=== PATIENT | female | born 1985 | race Caucasian/White ===

== ENCOUNTER 2017-09-29 11:03 | Inpatient (IN) | payer OTHER, MEDICAID ==
[~2017-09-29] VITALS: Ht 162.6 cm; Wt 119.1 kg
[~2017-09-29 11:03] MED LIST: Z.0.NO CURRENT MEDS
[2017-09-29 11:10] VITALS: O2SAT 97
[2017-09-29] MEDS ORDERED: ONDANSETRON HCL 4 MG/2 ML VIAL ONE (11:13)
[2017-09-29] MEDS ORDERED: ETOMIDATE 20 MG/10 ML VIAL ONE (11:27)
[2017-09-29 11:30] VITALS: O2SAT 100
[2017-09-29 11:40] LABS: I-STAT POTASSIUM 3.7 MMOL/L (3.5-4.9); I-STAT SODIUM 140 MMOL/L (138-146)
[2017-09-29 11:47] LABS: AUTOMATED NEUTROPHIL # 14.9 TH/MM3 (1.8-7.7); BASOPHIL # 0.1 TH/MM3 (0-0.2); BASOPHIL % 0.7 % (0.0-2.0); EOSINOPHIL # 0.1 TH/MM3 (0-0.4); EOSINOPHIL % 0.4 % (0.0-4.0); HEMATOCRIT 36.7 % (35.0-46.0); HEMO FLAGS DIFF FINAL; LYMPH % 23.9 % (9.0-44.0); MEAN CELL VOLUME 72.1 FL (80.0-100.0); MEAN CORPUSCULAR HEMOGLOBIN 23.3 PG (27.0-34.0); MEAN CORPUSCULAR HGB CONC 32.3 % (32.0-36.0); MONO % 3.5 % (0.0-8.0); NEUT % 71.5 % (16.0-70.0); PLATELET COUNT 440 TH/MM3 (150-450); RED BLOOD COUNT 5.08 MIL/MM3 (4.00-5.30); RED CELL DISTRIBUTION WIDTH 17.2 % (11.6-17.2); WHITE BLOOD COUNT 20.9 TH/MM3 (4.0-11.0)
[2017-09-29 11:50] LABS: APTT (PATIENT) 22.2 SEC (24.3-30.1); INTERNATIONAL NORMALIZED RATIO 0.9 RATIO; PROTHROMBIN TIME - PATIENT 10.1 SEC (9.8-11.6)
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
[2017-09-29] MEDS ORDERED: PROPOFOL 200 MG/20 ML AMP IV ONE (12:00)
[2017-09-29] MEDS ORDERED: MIDAZOLAM HCL 2 MG/2 ML VIAL IV ONE (12:00)
[2017-09-29] MEDS ORDERED: SUCCINYLCHOLINE CHLORIDE 100 MG/5 ML SYRINGE IV PUSH ONE (12:00)
[2017-09-29] MEDS ORDERED: NORMOSOL R INJ 1,000 ML IV ONE (12:00)
[2017-09-29] MEDS ORDERED: DEXAMETHASONE SOD PHOS 4 MG/ML VIAL IV ONE (12:00)
[2017-09-29] MEDS ORDERED: GLYCOPYRROLATE 1 MG/5 ML SYRINGE IV PUSH ONE (12:00)
[2017-09-29] MEDS ORDERED: LIDOCAINE HCL 1% PF 5 ML AMPULE OTHER ONE (12:00)
[2017-09-29] MEDS ORDERED: ONDANSETRON HCL 4 MG/2 ML VIAL IV PUSH ONE ×2 (12:00→14:00)
[2017-09-29] MEDS ORDERED: NEOSTIGMINE 3 MG/3 ML SYR IV ONE (12:00)
[2017-09-29] MEDS ORDERED: ROCURONIUM INJ 50 MG/5 ML SYRINGE IV PUSH ONE (12:00)
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
[2017-09-29] MEDS ORDERED: IOHEXOL 350 MG/ML 10 ML VIAL (for RAD DIAG) IVCONTRAST ONE (12:12)
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
[2017-09-29 12:30] LABS: ALCOHOL LESS THAN 3 MG/DL (0-5)
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
[2017-09-29] MEDS ORDERED: HYDROmorphone HCL PF 1 MG/ML VIAL IV PUSH ONE ×2 (13:30)
[2017-09-29] MEDS ORDERED: HYDROmorphone HCL PF 2 MG/ML VIAL IV ONE (13:36)
[2017-09-29] MEDS ORDERED: DIPHTH/TETANUS/ACEL PERTUSSIS (BOOSTER) 0.5 ML VIAL/PFS IM ONE (13:53)
[2017-09-29] MEDS ORDERED: ceFAZolin 2 GM PREMIX 50 ML IV STA (13:53)
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
[2017-09-29] MEDS ORDERED: SODIUM CHLOR 0.9% 1000 ML INJ 1,000 ML IV ONE (14:00)
[2017-09-29] MEDS ORDERED: ETOMIDATE 20 MG/10 ML VIAL IV PUSH ONE (14:00)
[2017-09-29] MEDS ORDERED: Post-op Orders (for Pharmacy) XX ONE (14:15)
[2017-09-29] MEDS ORDERED: NALOXONE HCL 0.4 MG/ML AMP IV PUSH PRN (14:15)
[2017-09-29] MEDS ORDERED: PROTAMINE SULFATE 50 MG/5 ML VIAL ONE (14:41)
[2017-09-29] MEDS ORDERED: HEPARIN SODIUM - IV 10,000 UNITS/10 ML VIAL ONE (14:41)
[2017-09-29] MEDS ORDERED: HEPARIN SODIUM - SQ 10,000 UNITS/ML VIAL ONE (14:41)
[2017-09-29] MEDS ORDERED: BUPIVACAINE HCL PF 0.25% 30 ML VIAL ONE (14:41)
[2017-09-29] MEDS: SODIUM CHLORIDE 0.9% FLUSH 10 ML FLUSH IV FLUSH PRN (14:43)
[2017-09-29] MEDS: MORPHINE SULFATE 4 MG/ML INJ IV PUSH PRN ×3 (14:43→21:32)
[2017-09-29 14:58] VITALS: BP 196/89; TEMP 98.7
[2017-09-29] MEDS ORDERED: HYDROmorphone HCL PF 2 MG/ML VIAL ONE (15:13)
[2017-09-29] MEDS ORDERED: ACETAMINOPHEN 1000 MG/100 ML 100 ML IV ONE (15:13)
[2017-09-29] MEDS ORDERED: KETAMINE HCL 500 MG/5 ML VIAL ONE (15:13)
[2017-09-29] MEDS ORDERED: GENTAMICIN SULFATE 80 MG/2 ML VIAL ONE (15:59)
[2017-09-29] MEDS ORDERED: NEOMYCIN/POLYMYXIN 1 ML G.U. IRRIGANT ONE (16:02)
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
[2017-09-29] MEDS: ceFAZolin 2 GM PREMIX 50 ML IV SCH ×2 (16:10→21:32)
[2017-09-29] MEDS: GENTAMICIN 80 MG PREMIX 100 ML IV SCH (16:10)
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
[2017-09-29] MEDS ORDERED: DO NOT ADM ANY ANTICOAGULANT DRUGS PRN (17:45)
--- NOTE | 2017-09-29 18:13 | HHI.PR ---
Immediate Post Op Note Procedure Date: Sep 29, 2017 Pre Op Diagnosis: Knight III R talus fracture/dislocation, open R medial/lateral malleolus fractures, open Post Op Diagnosis: Same Surgeon: Kanika Kelley DPM [employer](s): Staff Procedure: Irrigation and debridement Right ankle/rearfoot with external fixation Findings: Consistent with diagnosis. Medial ankle wound down to bone noted transversely across tarsal tunnel area from TN joint area posteriorly to, but not including achilles tendon insertion, medially. Talar body fragment dislocated medially with posterior tibial tendon frayed in wound. Under traction, talar body fragment reduced and checked with c-arm. Posterior tibial artery noted posterior to fragment and found to be patent. Irrigation with 9L NS with gentamicin, followed by application of transcalcaneal pin and two transtibial pins with delta frame construct maintaining reduction under c-arm guidance. Culture taken, followed by loose approximation with 2-0 nylon suture, followed by application of xeroform to pin sites and skin wound area, then 4x4, abd, cast padding and short posterior splint RLE. NWB RLE To OR again Friday for repeat I&D, and possible ORIF talus/attempt ORIF ankle if cultures negative on Friday Additional Information: Ancef 2g, Gentamicin 80mg IV ordered q8h No tourniquet utilized No gross debris noted in wound. Wound approximately 13cm x 5cm x 3cm depth R medial ankle Complications: None Specimen(s) removed: Culture R ankle Estimated blood loss: 30mL Anesthesia: General, Local (30mL 0.25% marcaine plain ankle block) Drains: None IVF Tourniquet time (min at mmHg) n/a Patient to: PACU Patient Condition: Good Date/Time of Procedure: SEE SURGICAL CARE RECORD Kanika Kelley DPM Sep 29, 2017 18:13
--- NOTE | 2017-09-29 18:20 | RADRPT ---
EXAM DATE/TIME: 09/29/2017 16:48 [facility] COMPARISON: ANKLE RIGHT LIMITED (AP&LAT), September 29, 2017, 11:46. INDICATIONS : Ex fix right ankle. Done in operating room. MEDICAL HISTORY : None. SURGICAL HISTORY : None. ENCOUNTER: Subsequent ACUITY: 1 day PAIN SCORE: Non-responsive. LOCATION: Right ankle. FINDINGS: 5 images from the OR have been obtained. There's been successful reduction of the talar fracture and distraction. The talar fragments are aligned. The ankle is aligned. There is fracturing of the dista l fibula and medial malleolus. There appears to be an external fixer over the calcaneus. CONCLUSION: Successful reduction. Young Pandey MD on September 29, 2017 at 18:17 Board Certified Radiologist. This report was verified electronically.
[2017-09-29] MEDS: VANCOMYCIN INJ 1,000 MG in SODIUM CHLOR 0.9% 250 ML INJ 250 ML IV SCH (18:30)
[2017-09-29] MEDS: SODIUM CHLOR 0.9% 1000 ML INJ 1,000 ML IV SCH (18:30)
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
[2017-09-29 20:00] VITALS: BP 141/77; PULSE 81; RESP 17; TEMP 98.3; O2SAT 94
--- NOTE | 2017-09-29 21:29 | RADRPT ---
EXAM DATE/TIME: 09/29/2017 19:57 [facility] COMPARISON: CT ANKLE RIGHT W/O CONTRAST, September 29, 2017, 13:54. INDICATIONS : Right ankle pain, evaluate post external fixation. RADIATION DOSE: 5.75 CTDIvol (mGy) MEDICAL HISTORY : Cardiovascular disease. Deep venous thrombosis. SURGICAL HISTORY : External fixation right ankle. ENCOUNTER: Initial ACUITY: 1 day PAIN SCALE: 10/10 LOCATION: Right ankle. TECHNIQUE: Volumetric scanning of the ankle was performed. Using automated exposure control and adjustment of t he mA and/or kV according to patient size, radiation dose was kept as low as reasonably achievable to obtain optimal diagnostic quality images. DICOM format image data is available electronically for review and comparison. FINDINGS: BONES: There is a comminuted fracture at the talar neck. The main aspect of the talar body is superiorly dis placed by approximately 5 mm. The fracture extends into the anterior aspect of the subtalar joint. The posterior aspect of the subtalar joint is normally aligned. The calcaneus is intact. No other f racture is seen in the foot. There is fracturing of the base of the medial malleolus and at the later al distal fibula/lateral malleolar region. The distal fibular fracture is very comminuted with super ior displacement of the distal lateral malleolar fracture fragments. There is an external fixation de vice seen through the calcaneus. JOINTS: The talar dome is aligned with the distal tibia. There does appear to be widening of the medial aspec t of the ankle joint measuring approximately 7 mm. The talar neck fracture extends into the anterior subtalar joint. SOFT TISSUES: There is some scattered air within the soft tissues. CONCLUSION: 1. Comminuted fracture of the talar neck with some mild superior displacement of the distal fragment in the order of 5 mm. 2. Severely comminuted distal fibular fracture with proximal displacement of the fragments. 3. Fracturing of the medial malleolus with some widening of the medial ankle joint. The distal media l malleolar fragment appears posteriorly displaced. Young Pandey MD on September 29, 2017 at 21:03 Board Certified Radiologist. This report was verified electronically.
[2017-09-29] MEDS: FAMOTIDINE 20 MG TAB PO SCH (21:32)
[2017-09-29] MEDS: DOCUSATE SODIUM 50 MG/SENNA 8.6 MG TAB PO SCH (21:32)
[2017-09-29] MEDS: MAGNESIUM HYDROXIDE SUSP 30 ML CUP PO SCH (21:32)
[2017-09-29] MEDS: SODIUM CHLORIDE 0.9% FLUSH 10 ML FLUSH IV FLUSH SCH (21:33)
[2017-09-30] VITALS (7 sets, daily range): BP systolic 101–134; BP diastolic 51–79; PULSE 66–102; RESP 16–19; TEMP 98–98.5; O2SAT 94–97
[2017-09-30] MEDS: MORPHINE SULFATE 4 MG/ML INJ IV PUSH PRN ×7 (00:38→19:40)
[2017-09-30] MEDS: GENTAMICIN 80 MG PREMIX 100 ML IV SCH ×3 (00:38→16:53)
[2017-09-30] MEDS: SODIUM CHLOR 0.9% 1000 ML INJ 1,000 ML IV SCH ×2 (03:11→09:47)
[2017-09-30] MEDS: VANCOMYCIN INJ 1,000 MG in SODIUM CHLOR 0.9% 250 ML INJ 250 ML IV SCH (03:12)
[2017-09-30] MEDS ORDERED: ACETAMINOPHEN/HYDROcodone 325 MG/7.5 MG TAB PO PRN (07:30)
[2017-09-30] MEDS ORDERED: ACETAMINOPHEN/HYDROcodone 325 MG/5 MG TAB PO PRN (07:30)
[2017-09-30 07:37] LABS: AUTOMATED NEUTROPHIL # 10.3 TH/MM3 (1.8-7.7); BASOPHIL % 0.1 % (0.0-2.0); HEMATOCRIT 30.5 % (35.0-46.0); HEMO FLAGS DIFF FINAL; LYMPH % 8.7 % (9.0-44.0); MEAN CELL VOLUME 71.3 FL (80.0-100.0); MEAN CORPUSCULAR HEMOGLOBIN 23.4 PG (27.0-34.0); MEAN CORPUSCULAR HGB CONC 32.8 % (32.0-36.0); MONO % 3.5 % (0.0-8.0); NEUT % 87.7 % (16.0-70.0); PLATELET COUNT 285 TH/MM3 (150-450); RED BLOOD COUNT 4.28 MIL/MM3 (4.00-5.30); RED CELL DISTRIBUTION WIDTH 16.8 % (11.6-17.2); WHITE BLOOD COUNT 11.8 TH/MM3 (4.0-11.0)
[2017-09-30 07:53] LABS: ALT (GPT) 19 U/L (10-53); ANION GAP 9 MEQ/L (5-15); AST (GOT) 31 U/L (15-37); BICARBONATE 22.2 MEQ/L (21.0-32.0); BLOOD UREA NITROGEN 4 MG/DL (7-18); CHLORIDE 107 MEQ/L (98-107); GLOMERULAR FILTRATION RATE 87 ML/MIN (>89); SODIUM (NA) 138 MEQ/L (136-145)
[2017-09-30 07:56] LABS: ALKALINE PHOSPHATASE 80 U/L (45-117); TOTAL BILIRUBIN ADULT 0.3 MG/DL (0.2-1.0)
[2017-09-30] MEDS: FAMOTIDINE 20 MG TAB PO SCH ×2 (08:31→19:39)
[2017-09-30] MEDS: SODIUM CHLORIDE 0.9% FLUSH 10 ML FLUSH IV FLUSH SCH ×2 (08:31→19:39)
[2017-09-30] MEDS: DOCUSATE SODIUM 50 MG/SENNA 8.6 MG TAB PO SCH ×2 (08:31→19:39)
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
[2017-09-30] MEDS: ceFAZolin 2 GM PREMIX 50 ML IV SCH ×2 (13:54→22:49)
--- NOTE | 2017-09-30 14:26 | EKG ---
Date Performed: 09/29/2017 Time Performed: 14:41:21 PTAGE: 32 years EKG: Sinus rhythm NORMAL ECG PREVIOUS TRACING : 05/24/2013 03.06 Compared to prior tracing no significant change DOCTOR: Fly Aburto Interpretating Date/Time 09/30/2017 14:19:54
[2017-09-30] MEDS ORDERED: WALKER WHEELS/F1 MIS (14:27)
[2017-09-30] MEDS: ACETAMINOPHEN 1000 MG/100 ML 100 ML IV SCH ×2 (14:37→19:40)
[2017-09-30] MEDS: KETOROLAC TROMETHAMINE 30 MG/ML (IVP) VIAL IV PUSH SCH ×2 (14:37→22:49)
[2017-09-30] MEDS: GABAPENTIN 300 MG CAP PO SCH (17:06)
[2017-09-30] MEDS: MAGNESIUM HYDROXIDE SUSP 30 ML CUP PO SCH (19:39)
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
--- NOTE | 2017-09-30 21:12 | PD.POD ---
Subjective Podiatric Problems Knight III R talus fracture/dislocation, open R medial/lateral malleolus fractures, open s/p Irrigation and debridement Right ankle/rearfoot with external fixation Dr Kelley Past Med/Surg/Social History Social History Smoking Status: Former Smoker Objective Vital Signs Vital Signs Date Time Temp Pulse Resp B/P (MAP) Pulse Ox O2 Delivery O2 Flow Rate FiO2 09/30/17 20:25 97 21 09/30/17 19:15 98.2 86 16 129/58 (81) 97 09/30/17 15:45 98.4 102 16 101/54 (70) 97 09/30/17 11:47 98.5 80 19 117/54 (75) 95 09/30/17 08:25 Room Air 09/30/17 07:34 98.0 66 19 105/51 (69) 95 09/30/17 06:04 18 09/30/17 05:06 Room Air 09/30/17 04:05 98.3 91 16 130/59 (82) 94 09/30/17 00:05 98.5 88 18 134/79 (97) 95 Coded Allergies: No Known Allergies (Verified , 05/23/13) Medications and IVs Current Medications Medications (Trade) Dose Ordered Sig/Bettie Route Start Time Stop Time Status Last Admin Sodium Chloride 1,000 ml @ 100 mls/hr Q10H IV 09/29/17 14:00 09/30/17 03:11 (NS Flush) 2 ml UNSCH PRN IV FLUSH 09/29/17 14:00 09/29/17 14:43 (NS Flush) 2 ml BID IV FLUSH 09/29/17 21:00 09/30/17 08:31 (Zofran Inj) 4 mg Q6H PRN IV PUSH 09/29/17 15:00 (Pepcid) 20 mg BID PO 09/29/17 21:00 09/30/17 19:39 (Narcan Inj) 0.4 mg UNSCH PRN IV PUSH 09/29/17 14:15 (Faby-Colace) 1 tab BID PO 09/29/17 21:00 09/30/17 19:39 (Milk Of Magnesia Liq) 30 ml HS PO 09/29/17 21:00 09/30/17 19:39 Gentamicin Sulfate/Sodium Chloride 100 ml @ 200 mls/hr Q8H IV 09/29/17 16:00 09/30/17 16:53 Cefazolin Sodium/ Dextrose 50 ml @ 100 mls/hr Q8H IV 09/29/17 22:00 09/30/17 13:54 (Morphine Inj) 4 mg Q4H PRN IV PUSH 09/30/17 14:15 09/30/17 19:40 (Roxicodone) 5 mg Q4H PRN PO 09/30/17 14:15 (Roxicodone) 10 mg Q4H PRN PO 09/30/17 14:15 09/30/17 17:08 (Toradol Inj) 15 mg Q6H IV PUSH 09/30/17 15:00 09/30/17 14:37 Acetaminophen 100 ml @ 400 mls/hr Q6H IV 09/30/17 15:00 10/01/17 14:59 09/30/17 19:40 (Neurontin) 300 mg TID PO 09/30/17 18:00 09/30/17 17:06 Other Results Microbiology Date/Time Source Procedure Growth Status 09/29/17 17:16 Wound Ankle Fungal Smear - Final NO FUNGAL ELEMENTS SEEN. Resulted 09/29/17 17:16 Wound Ankle Fungal Culture Pending Resulted Physical Exam Remarks NVI RLE. Sensation intact to digits, brisk capillary refill time. Able to flex/ extend digits. Bandage clean, dry, intact. Assessment & Plan A/P Knight III R talus fracture/dislocation, open R medial/lateral malleolus fractures, open s/p Irrigation and debridement Right ankle/rearfoot with external fixation 09/29 Dr Kelley To OR tomorrow PM for repeat I&D with cultures. Plan to take back for ORIF talus/ankle Friday pm if tomorrow's culture is also negative NPO after breakfast Consent ordered Kanika Kelley DPM Sep 30, 2017 21:12
[2017-09-30] MEDS ORDERED: POVIDONE IODINE 5% (ANTISEPSIS KIT) 4 APPLICATIONS EACH NARE PRN (22:15)
[2017-09-30] MEDS ORDERED: METOPROLOL TARTRATE 25 MG TAB PO PRN (22:15)
[2017-09-30] MEDS ORDERED: SODIUM CHLORID 0.9% 500 ML IV PRN (22:15)
[2017-09-30] MEDS ORDERED: LACTATED RINGER'S 1000 ML IV PRN (22:15)
[2017-09-30] MEDS ORDERED: CHLORHEXIDINE GLUCONATE 2 % 1 PACK (2 CLOTHS) TOPICAL PRN (22:15)
[2017-10-01 00:05] VITALS: BP 121/60; PULSE 92; RESP 16; TEMP 98; O2SAT 96
[2017-10-01] MEDS: GENTAMICIN 80 MG PREMIX 100 ML IV SCH ×3 (00:27→17:15)
[2017-10-01] MEDS: ACETAMINOPHEN 1000 MG/100 ML 100 ML IV SCH ×2 (03:18→09:02)
[2017-10-01] MEDS: KETOROLAC TROMETHAMINE 30 MG/ML (IVP) VIAL IV PUSH SCH ×4 (03:19→21:21)
[2017-10-01 04:05] VITALS: BP 144/76; PULSE 84; RESP 16; TEMP 98.8; O2SAT 97
[2017-10-01] MEDS: ceFAZolin 2 GM PREMIX 50 ML IV SCH ×3 (05:36→21:28)
[2017-10-01] MEDS: SODIUM CHLOR 0.9% 1000 ML INJ 1,000 ML IV SCH ×2 (06:00→16:00)
--- NOTE | 2017-10-01 06:21 | RADRPT ---
EXAM DATE/TIME: 10/01/2017 05:45 [facility] COMPARISON: CHEST SINGLE AP, September 29, 2017, 11:24. INDICATIONS : Shortness of breath. MEDICAL HISTORY : None. SURGICAL HISTORY : None. ENCOUNTER: Subsequent ACUITY: 3 days PAIN SCORE: Non-responsive. LOCATION: Bilateral chest FINDINGS: A single view of the chest demonstrates the lungs to be symmetrically aerated without evidence of mas s, infiltrate or effusion. The cardiomediastinal contours are unremarkable. Osseous structures are intact. CONCLUSION: Normal examination. Ralph Nelson MD on October 01, 2017 at 6:20 Board Certified Radiologist. This report was verified electronically.
[2017-10-01 07:54] VITALS: BP 120/67; PULSE 63; RESP 18; TEMP 97.8; O2SAT 97
[2017-10-01] MEDS: SODIUM CHLORIDE 0.9% FLUSH 10 ML FLUSH IV FLUSH SCH ×2 (09:00→21:21)
[2017-10-01] MEDS: DOCUSATE SODIUM 50 MG/SENNA 8.6 MG TAB PO SCH ×2 (09:03→21:20)
[2017-10-01] MEDS: FAMOTIDINE 20 MG TAB PO SCH ×2 (09:03→21:20)
[2017-10-01] MEDS: GABAPENTIN 300 MG CAP PO SCH ×3 (09:03→21:20)
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
[2017-10-01 12:00] VITALS: BP 130/62; PULSE 78; RESP 18; TEMP 97.3; O2SAT 97
[2017-10-01] MEDS ORDERED: LIDOCAINE HCL 1% PF 5 ML SYRINGE OTHER ONE (12:00)
[2017-10-01] MEDS ORDERED: ONDANSETRON HCL 4 MG/2 ML VIAL IV PUSH ONE (12:00)
[2017-10-01] MEDS ORDERED: PROPOFOL 200 MG/20 ML AMP IV ONE (12:00)
[2017-10-01] MEDS: ONDANSETRON HCL 4 MG/2 ML VIAL IV PUSH PRN ×2 (12:34→23:09)
[2017-10-01 16:00] VITALS: BP 134/66; PULSE 82; RESP 18; TEMP 98.5; O2SAT 99
[2017-10-01] MEDS ORDERED: GENTAMICIN SULFATE 80 MG/2 ML VIAL ONE (16:39)
[2017-10-01] MEDS ORDERED: *morphine SULFATE 8 MG/ML PERIprocedure ONLY ONE (17:53)
--- NOTE | 2017-10-01 18:11 | HHI.PR ---
Immediate Post Op Note Procedure Date: Oct 01, 2017 Pre Op Diagnosis: Knight III R talus fracture/dislocation, open R medial/lateral malleolus fractures, open Post Op Diagnosis: same Surgeon: Kanika Kelley DPM Composition [employer] Applier(s): Staff Procedure: I&D R ankle/rearfoot Findings: Consistent with diagnosis. Medial ankle wound down to bone noted transversely across tarsal tunnel area from TN joint area posteriorly to, but not including achilles tendon insertion, medially. Laceration continues posteriorly across, but again not transecting sheath over achilles tendon. Talar body fragment remains relocated and external fixator intact. irrigation with 9L NS. Culture taken of bone from talus fracture site, followed by loose approximation with 2-0 nylon suture, followed by application of xeroform to pin sites and skin wound area, then 4x4, abd, cast padding and short posterior splint RLE. NWB RLE To OR again Friday for possible ORIF talus/attempt ORIF ankle if cultures negative on Friday Continue Ancef 2g, Gentamicin 80mg IV ordered q8h No tourniquet utilized No gross debris noted in wound. Wound approximately 13cm x 5cm x 3cm depth R medial ankle Additional Information: n/a Complications: none Specimen(s) removed: culture R talus Estimated blood loss: minimal Anesthesia: General Drains: None IVF Tourniquet time (min at mmHg) n/a Patient to: PACU Patient Condition: Good Date/Time of Procedure: SEE SURGICAL CARE RECORD Kanika Kelley DPM Oct 01, 2017 18:11
[2017-10-01] MEDS ORDERED: DO NOT ADM ANY ANTICOAGULANT DRUGS PRN (18:15)
[2017-10-01 20:00] VITALS: BP 106/44; PULSE 90; RESP 20; TEMP 98.1; O2SAT 96
[2017-10-01] MEDS: MAGNESIUM HYDROXIDE SUSP 30 ML CUP PO SCH (21:20)
[2017-10-02] VITALS: BP 119/64; PULSE 102; RESP 20; TEMP 98.2
[2017-10-02] MEDS: GENTAMICIN 80 MG PREMIX 100 ML IV SCH ×3 (00:05→18:27)
[2017-10-02] MEDS: KETOROLAC TROMETHAMINE 30 MG/ML (IVP) VIAL IV PUSH SCH ×4 (02:13→21:56)
[2017-10-02 04:00] VITALS: BP 106/54; PULSE 87; RESP 22; TEMP 98.3; O2SAT 98
[2017-10-02] MEDS: ceFAZolin 2 GM PREMIX 50 ML IV SCH ×3 (05:06→21:55)
[2017-10-02 08:00] VITALS: BP 125/46; PULSE 91; RESP 18; TEMP 98.5; O2SAT 97
[2017-10-02] MEDS: GABAPENTIN 300 MG CAP PO SCH ×3 (08:29→18:27)
[2017-10-02] MEDS: DOCUSATE SODIUM 50 MG/SENNA 8.6 MG TAB PO SCH ×2 (08:29→21:55)
[2017-10-02] MEDS: FAMOTIDINE 20 MG TAB PO SCH ×2 (08:30→21:55)
[2017-10-02] MEDS: SODIUM CHLORIDE 0.9% FLUSH 10 ML FLUSH IV FLUSH SCH ×2 (08:30→21:56)
[2017-10-02] MEDS ORDERED: LACTULOSE SYRUP 20 GM/30 ML CUP PO ONE (09:00)
[2017-10-02] MEDS: ENOXAPARIN SODIUM 40 MG/0.4 ML SYRINGE SQ SCH (10:04)
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
[2017-10-02] MEDS ORDERED: WHEEMIS3 (11:42)
[2017-10-02] MEDS ORDERED: BEDSIDE COMMODE1 MI1 (11:42)
[2017-10-02 12:00] VITALS: BP 132/78; PULSE 91; RESP 18; TEMP 98.5; O2SAT 97
[2017-10-02 16:00] VITALS: BP 117/58; PULSE 80; RESP 18; TEMP 97.9; O2SAT 99
[2017-10-02 20:00] VITALS: BP 132/60; PULSE 96; RESP 18; TEMP 99.1; O2SAT 98
[2017-10-02] MEDS: MAGNESIUM HYDROXIDE SUSP 30 ML CUP PO SCH (21:55)
--- NOTE | 2017-10-02 22:42 | PD.POD ---
Subjective Podiatric Problems Knight III R talus fracture/dislocation, open R medial/lateral malleolus fractures, open s/p Irrigation and debridement Right ankle/rearfoot with external fixation Dr Kelley s/p Irrigation and debridement Right ankle/rearfoot 10/01/17 Dr Kelley L 5th digit fracture Past Med/Surg/Social History Social History Smoking Status: Former Smoker Objective Vital Signs Vital Signs Date Time Temp Pulse Resp B/P (MAP) Pulse Ox O2 Delivery O2 Flow Rate FiO2 10/02/17 20:00 99.1 96 18 132/60 (84) 98 10/02/17 16:00 97.9 80 18 117/58 (77) 99 10/02/17 12:00 98.5 91 18 132/78 (96) 97 10/02/17 08:25 Room Air 10/02/17 08:00 98.5 91 18 125/46 (72) 97 10/02/17 04:00 98.3 87 22 106/54 (71) 98 10/02/17 00:00 98.2 102 20 119/64 (82) Coded Allergies: No Known Allergies (Verified , 05/23/13) Physical Exam Remarks Unchanged. External fixator intact and dressing clean, dry, intact RLE. Surgical shoe available for L foot Assessment & Plan A/P Knight III R talus fracture/dislocation, open R medial/lateral malleolus fractures, open s/p Irrigation and debridement Right ankle/rearfoot with external fixation 09/29 Dr Kelley s/p Irrigation and debridement Right ankle/rearfoot 10/01/17 Dr Kelley To OR tomorrow PM for repeat I&D with ORIF R talus, ORIF R ankle, possible adjustment vs removal of external fixator R ankle. NPO after breakfast tomorrow Discussed with patient long-term complications of this injury to include probability of AVN talus upwards of 90% or more and that being ambulatory in a brace with minimal pain is the best result that could be achieved, but that chronic pain and disability could also be likely with likelihood of more surgery in the future as a result L 5th toe fracture continue ambulating in surgical shoe L foot Kanika Kelley DPM Oct 02, 2017 22:42
[2017-10-03] VITALS: BP 121/57; PULSE 90; RESP 16; TEMP 99.7; O2SAT 98
[2017-10-03] MEDS: GENTAMICIN 80 MG PREMIX 100 ML IV SCH ×3 (00:26→16:34)
[2017-10-03] MEDS: KETOROLAC TROMETHAMINE 30 MG/ML (IVP) VIAL IV PUSH SCH ×4 (03:00→22:34)
[2017-10-03 04:00] VITALS: BP 119/65; PULSE 83; RESP 17; TEMP 98.8; O2SAT 99
[2017-10-03] MEDS: ceFAZolin 2 GM PREMIX 50 ML IV SCH ×3 (06:37→22:00)
[2017-10-03] MEDS: DOCUSATE SODIUM 50 MG/SENNA 8.6 MG TAB PO SCH ×2 (07:52→21:00)
[2017-10-03] MEDS: GABAPENTIN 300 MG CAP PO SCH ×3 (07:52→17:46)
[2017-10-03] MEDS: FAMOTIDINE 20 MG TAB PO SCH ×2 (07:53→21:00)
[2017-10-03 08:00] VITALS: BP 115/60; PULSE 90; RESP 18; TEMP 98.7; O2SAT 99
[2017-10-03] MEDS: SODIUM CHLORIDE 0.9% FLUSH 10 ML FLUSH IV FLUSH SCH ×2 (09:00→21:00)
[2017-10-03] MEDS: ENOXAPARIN SODIUM 40 MG/0.4 ML SYRINGE SQ SCH (10:00)
--- NOTE | 2017-10-03 10:22 | RADRPT ---
EXAM DATE/TIME: 10/03/2017 09:43 [facility] COMPARISON: CT ANKLE RIGHT W/O CONTRAST, September 29, 2017, 19:57. INDICATIONS : Right ankle fractures. RADIATION DOSE: 28.49 CTDIvol (mGy) MEDICAL HISTORY : Deep venous thrombosis. SURGICAL HISTORY : Multiple right ankle surgeries. ENCOUNTER: Subsequent ACUITY: 4 - 6 days PAIN SCALE: 3/10 LOCATION: Right ankle. TECHNIQUE: Volumetric scanning of the ankle was performed. Using automated exposure control and adjustment of t he mA and/or kV according to patient size, radiation dose was kept as low as reasonably achievable to obtain optimal diagnostic quality images. DICOM format image data is available electronically for review and comparison. FINDINGS: The examination demonstrates a severely comminuted, moderately displaced fracture of the distal fibul a with extension into the lateral malleolus. There is a 100 percent displaced, mildly rotated fractur e of the medial malleolus as well. There is widening of the ankle mortise. The examination also demon strates several small bone fragments which are situated within the tibiotalar joint anteriorly. The talar dome is intact. There is a comminuted, mildly displaced fracture through the neck of the ta bobbi. There are multiple small bone fragments evident. The talonavicular joint appears intact. Direct comparison is made to the patient's previous study of 09/29/17. The overall alignment of the a nkle mortise and the fracture fragments is unchanged. Note is made of a punctate collection of gas within the patient's severely comminuted fibular fractur e. The overall amount of gas within the joint has significantly decreased compared to the prior of . CONCLUSION: 1. There is a severely comminuted, essentially shattered fracture involving the distal fibula extendi ng through the lateral malleolus. There are numerous bone fragments and moderate displacement. 2. There is a percent displaced, rotated fracture of the medial malleolus. 3. There is widening of the ankle mortise with several punctate bone fragment seen within the anterio r aspect of the joint. 4. Fracture with comminution through the neck of the talus. 5. Comparison is made to the exam of 09/29/17. The overall alignment of the fracture fragments is sim ilar to the examination of 09/29/17. Jesus Alberto Carpenter MD on October 03, 2017 at 10:12 Board Certified Radiologist. This report was verified electronically.
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
[2017-10-03 12:00] VITALS: BP 142/56; PULSE 91; RESP 18; TEMP 97.4; O2SAT 100
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
[2017-10-03 16:00] VITALS: BP 145/61; PULSE 86; RESP 18; TEMP 98.7; O2SAT 98
[2017-10-03] MEDS ORDERED: BUPIVACAINE HCL PF 0.25% 30 ML VIAL ONE (16:57)
[2017-10-03] MEDS ORDERED: GENTAMICIN SULFATE 80 MG/2 ML VIAL ONE (16:57)
[2017-10-03] MEDS ORDERED: NEOMYCIN/POLYMYXIN 1 ML G.U. IRRIGANT ONE (17:00)
[2017-10-03] MEDS ORDERED: ACETAMINOPHEN 1000 MG/100 ML 100 ML IV ONE (17:07)
[2017-10-03] MEDS: MAGNESIUM HYDROXIDE SUSP 30 ML CUP PO SCH (21:00)
[2017-10-03] MEDS ORDERED: MORPHINE SULFATE 8 MG/ML INJ ONE (22:29)
[2017-10-03] MEDS ORDERED: MEPERIDINE HCL 25 MG/ML VIAL ONE (22:30)
--- NOTE | 2017-10-03 22:40 | HHI.PR ---
Immediate Post Op Note Procedure Date: Oct 03, 2017 Pre Op Diagnosis: Knight III R talus fracture/dislocation, open R medial/lateral malleolus fractures, open Post Op Diagnosis: Same Surgeon: Kanika Kelley DPM Operater(s): Viktor Aragon DPM Procedure: I&D R ankle/rearfoot ORIF R talus ORIF R ankle Adjust external fixator R ankle Application of external fixator R foot Findings: Consistent with diagnosis. Medial ankle wound down to bone noted transversely across tarsal tunnel area from TN joint area posteriorly to, but not including achilles tendon insertion, medially. Laceration continues posteriorly across, but again not transecting sheath over achilles tendon. Talar body fragment remains relocated and external fixator intact. irrigation with 3L NS. Culture taken of wound medial ankle. Talus fracture reduced and 2 cannulated screws placed across talus fracture site. Medial malleolus fixated with hook place, followed by reduction of lateral malleolar fracture with distal fibular locking plate. Distal fibula highly comminuted. Reduction confirmed with c-arm. External fixator reapplied, and additional external fixation placed to proximal 1st and 5th metatarsal bases to hold foot in dorsiflexed position. Deep closure with 3-0 vicryl, followed by skin closure with 2-0 nylon, followed by application of xeroform to pin sites and skin wound area, then 4x4, abd, cast padding and short posterior splint RLE. NWB RLE Ok to d/c and follow up in clinic in 1 week when pain controlled on oral medications. Continue Ancef 2g, Gentamicin 80mg IV ordered q8h No tourniquet utilized Additional Information: n/a Complications: none Specimen(s) removed: culture R medial ankle Estimated blood loss: minimal Anesthesia: General, Local (10mL 0.5% marcaine plain) Drains: None IVF Tourniquet time (min at mmHg) n/a Patient to: PACU Patient Condition: Good Implant/Devices: SEE IMPLANT LOG (if applicable) Date/Time of Procedure: SEE SURGICAL CARE RECORD Kanika Kelley DPM Oct 03, 2017 22:40
--- NOTE | 2017-10-03 22:41 | RADRPT ---
EXAM DATE/TIME: 10/03/2017 19:13 [facility] COMPARISON: CT ANKLE RIGHT W/O CONTRAST, September 29, 2017, 19:57. ANKLE RIGHT COMPLETE ([id number]), September 29, 2017, 18:29. INDICATIONS : ORIF right ankle. MEDICAL HISTORY : None. SURGICAL HISTORY : None. ENCOUNTER: Initial ACUITY: 1 day PAIN SCORE: Non-responsive. LOCATION: Right ankle FINDINGS: 4 images have been obtained. There is a surgical plate along the lateral aspect of the fibula secured by multiple screws. There is a shorter plate at the distal medial aspect of the tibia. There is a sc rew through the medial malleolus. 2 screws are seen through the talus. The ankle is normally aligned. CONCLUSION: Successful ORIF. Young Pandey MD on October 03, 2017 at 22:38 Board Certified Radiologist. This report was verified electronically.
[2017-10-03] MEDS ORDERED: DO NOT ADM ANY ANTICOAGULANT DRUGS PRN (23:00)
[2017-10-03] MEDS ORDERED: *morphine SULFATE 8 MG/ML PERIprocedure ONLY ONE ×2 (23:03→23:16)
--- NOTE | 2017-10-03 23:05 | RADRPT ---
EXAM DATE/TIME: 10/03/2017 22:37 [facility] COMPARISON: ANKLE RIGHT COMPLETE ([id number]), October 03, 2017, 19:13. INDICATIONS : Post Op ORIF right ankle. MEDICAL HISTORY : None. SURGICAL HISTORY : None. ORIF right ankle ENCOUNTER: Initial ACUITY: 1 day PAIN SCORE: Non-responsive. LOCATION: Right ankle FINDINGS: Three-view examination postoperative internal fixation demonstrates lateral fibular plate and medial tibial plate with associated medial malleolar screw. Also 2 screws in the talus. Alignment of the b lorena structures is anatomic. External fixation device in place. There is a triangle are shaped bony fragment adjacent to the distal lateral malleolus. Moderate soft tissue swelling about the lateral a spect of the ankle. CONCLUSION: Postoperative hardware internal fixation with anatomic alignment. Deepak Jamison MD on October 03, 2017 at 22:56 Board Certified Radiologist. This report was verified electronically.
[2017-10-03 23:46] VITALS: BP 134/65; PULSE 93; RESP 18; TEMP 98.6; O2SAT 97
[2017-10-04] MEDS: GENTAMICIN 80 MG PREMIX 100 ML IV SCH ×4 (00:52→22:46)
[2017-10-04] MEDS: KETOROLAC TROMETHAMINE 30 MG/ML (IVP) VIAL IV PUSH SCH ×4 (03:00→20:12)
[2017-10-04 04:00] VITALS: BP 129/59; PULSE 69; RESP 16; TEMP 97.7; O2SAT 98
[2017-10-04] MEDS: SODIUM CHLORIDE 0.9% FLUSH 10 ML FLUSH IV FLUSH PRN ×2 (04:03→05:12)
[2017-10-04] MEDS: MORPHINE SULFATE 4 MG/ML INJ IV PUSH PRN ×3 (04:03→13:37)
[2017-10-04] MEDS: CYCLOBENZAPRINE HCL 10 MG TAB PO SCH ×3 (05:12→22:46)
[2017-10-04] MEDS: ceFAZolin 2 GM PREMIX 50 ML IV SCH ×3 (05:12→22:47)
[2017-10-04 08:02] VITALS: BP 115/68; PULSE 84; RESP 18; TEMP 97.7; O2SAT 94
[2017-10-04] MEDS: FAMOTIDINE 20 MG TAB PO SCH ×2 (08:55→20:11)
[2017-10-04] MEDS: GABAPENTIN 300 MG CAP PO SCH ×3 (08:55→18:30)
[2017-10-04] MEDS: SODIUM CHLORIDE 0.9% FLUSH 10 ML FLUSH IV FLUSH SCH ×2 (08:56→20:12)
[2017-10-04] MEDS: DOCUSATE SODIUM 50 MG/SENNA 8.6 MG TAB PO SCH ×2 (08:56→20:11)
[2017-10-04] MEDS ORDERED: PERI PO (11:23)
[2017-10-04] MEDS ORDERED: LEVA500T33 PO (11:23)
[2017-10-04] MEDS ORDERED: PERC5TAB12 PO (11:23)
[2017-10-04] MEDS ORDERED: CYCL10TA PO (11:23)
[2017-10-04] MEDS: ENOXAPARIN SODIUM 40 MG/0.4 ML SYRINGE SQ SCH (11:26)
[2017-10-04 12:00] VITALS: BP 141/70; PULSE 83; RESP 18; TEMP 97.6; O2SAT 97
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
[2017-10-04 16:00] VITALS: BP_SYST 121; BP_SYST 135; BP_DIAS 75; PULSE 70; PULSE 94; RESP 18; TEMP 97.3; TEMP 98.2; O2SAT 97; O2SAT 99
[2017-10-04 20:12] VITALS: BP 145/66; PULSE 94; RESP 18; TEMP 98.3; O2SAT 99
[2017-10-04] MEDS: MAGNESIUM HYDROXIDE SUSP 30 ML CUP PO SCH (20:12)
[2017-10-04 23:36] VITALS: BP 116/58; PULSE 97; RESP 18; TEMP 98.8; O2SAT 99
[2017-10-05] MEDS: KETOROLAC TROMETHAMINE 30 MG/ML (IVP) VIAL IV PUSH SCH ×2 (00:27→08:25)
[2017-10-05] MEDS: ceFAZolin 2 GM PREMIX 50 ML IV SCH (04:56)
[2017-10-05] MEDS: CYCLOBENZAPRINE HCL 10 MG TAB PO SCH ×2 (04:56→12:26)
[2017-10-05] MEDS: MORPHINE SULFATE 4 MG/ML INJ IV PUSH PRN (06:15)
[2017-10-05 08:04] VITALS: BP 136/59; PULSE 78; RESP 18; TEMP 97.5; O2SAT 97
[2017-10-05] MEDS: DOCUSATE SODIUM 50 MG/SENNA 8.6 MG TAB PO SCH (08:25)
[2017-10-05] MEDS: GABAPENTIN 300 MG CAP PO SCH ×2 (08:25→12:25)
[2017-10-05] MEDS: FAMOTIDINE 20 MG TAB PO SCH (08:25)
[2017-10-05] MEDS: SODIUM CHLORIDE 0.9% FLUSH 10 ML FLUSH IV FLUSH SCH (08:25)
[2017-10-05] MEDS: GENTAMICIN 80 MG PREMIX 100 ML IV SCH (08:26)
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
[2017-10-05 12:01] VITALS: BP 106/52; PULSE 87; RESP 18; TEMP 97.5; O2SAT 95
[2017-10-05] MEDS: ENOXAPARIN SODIUM 40 MG/0.4 ML SYRINGE SQ SCH (12:25)
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
== END 2017-10-05 15:45 | disposition home health service (06) | DRG 493 ==
LOC: HOR 11:03 → NEDA 12:50 → N06B 19:03
PROVIDERS: ADMIT Surgery; ATTEND Surgery
PROC: 0QSJXZZ Reposition Right Fibula, External Approach (ICD-10-PCS; 2017-09-29)
PROC: 0QSGXZZ Reposition Right Tibia, External Approach (ICD-10-PCS; 2017-09-29)
PROC: 04JY0ZZ Inspection of Lower Artery, Open Approach (ICD-10-PCS; 2017-09-29)
PROC: 0QDL0ZZ Extraction of Right Tarsal, Open Approach (ICD-10-PCS; principal; 2017-09-29 15:54)
PROC: 0QSL05Z Reposition Right Tarsal with External Fixation Device, Open Approach (ICD-10-PCS; 2017-09-29 15:54)
PROC: 0QDL0ZZ Extraction of Right Tarsal, Open Approach (ICD-10-PCS; 2017-10-01)
PROC: 0QSJ04Z Reposition Right Fibula with Internal Fixation Device, Open Approach (ICD-10-PCS; 2017-10-03)
PROC: 0QSG04Z Reposition Right Tibia with Internal Fixation Device, Open Approach (ICD-10-PCS; 2017-10-03)
PROC: 0QSL04Z Reposition Right Tarsal with Internal Fixation Device, Open Approach (ICD-10-PCS; 2017-10-03)
PROC: 0QHL35Z Insertion of External Fixation Device into Right Tarsal, Percutaneous Approach (ICD-10-PCS; 2017-10-03)
DX: S82.841B Displaced bimalleolar fracture of right lower leg, initial encounter for open fracture type I or II (principal); Z68.42 Body mass index [BMI] 45.0-49.9, adult; I10 Essential (primary) hypertension; S92.101B Unspecified fracture of right talus, initial encounter for open fracture; S92.912A Unspecified fracture of left toe(s), initial encounter for closed fracture; E66.9 Obesity, unspecified; R10.11 Right upper quadrant pain; Z86.718 Personal history of other venous thrombosis and embolism; Z87.891 Personal history of nicotine dependence; V43.52XA Car driver injured in collision with other type car in traffic accident, initial encounter; Y92.410 Unspecified street and highway as the place of occurrence of the external cause
CPT/HCPCS: 27840; 71010; 71260; 72125; 72170; 73600; 73610; 73630; 73700; 74177; 76000; 76937; 80053; 80307; 82435; 82565; 82947; 84132; 84295; 84520; 85025; 85610; 85730; 86850; 86900; 86901; 87015; 87070; 87102; 87116; 87176; 87205; 87206; 90715; 93005; 96374; 96375; C1713; J0131; J0330; J0690; J1100; J1170; J1580; J1644; J1650; J1885; J2175; J2250; J2270; J2405; J2710; J2720; J3010; J3370; J7030; J7050; L2114; L3260; L8699; Q9967

== ENCOUNTER 2017-12-07 20:37 | Inpatient (IN) | payer MEDICAID ==
[~2017-12-07] VITALS: Ht 162.6 cm; Wt 119.2 kg
[~2017-12-07 20:37] MED LIST changes: +BEDSIDE COMMODE1 MI1; +CYCL10TA PO; +LEVA500T33 PO; +PERC5TAB12 PO; +PERI PO; +WALKER WHEELS/F1 MIS; +WHEEMIS3; -Z.0.NO CURRENT MEDS
[2017-12-07 20:39] VITALS: BP 159/103; PULSE 130; RESP 20; TEMP 98.9; O2SAT 96
[2017-12-07] MEDS ORDERED: GABA300C5 PO (21:08)
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
[2017-12-07] MEDS ORDERED: oxyCODONE/ACETAMINOPHEN 5 MG/325 MG TAB PO ONE (21:30)
--- NOTE | 2017-12-07 21:55 | RADRPT ---
EXAM DATE/TIME: 12/07/2017 21:27 [facility] COMPARISON: ANKLE RIGHT COMPLETE ([id number]), October 03, 2017, 22:37. INDICATIONS : Painful post surgical right ankle more then usual with no new known trauma. MEDICAL HISTORY : None. SURGICAL HISTORY : ORIF Right ankle ENCOUNTER: Subsequent ACUITY: 2 months PAIN SCORE: 10/10 LOCATION: Right ankle FINDINGS: Two view examination was performed of the right ankle. Plain screws along the distal fibula and dista l tibia. Screw through the medial malleolus noted. This fixate old fractures. External fixation devic e is seen. There is also screws traversing the talus. Soft tissue swelling. Bony fragment again seen distal to the lateral malleolus. CONCLUSION: Previous internal fixation and external fixation devices. David Ramires MD on December 07, 2017 at 21:52 Board Certified Radiologist. This report was verified electronically.
--- NOTE | 2017-12-07 22:22 | RADRPT ---
EXAM DATE/TIME: 12/07/2017 22:02 [facility] COMPARISON: ANKLE RIGHT LIMITED (AP&LAT), December 07, 2017, 21:27. INDICATIONS : Increased pain in right ankle 2 months post op / ex-fix. RADIATION DOSE: 7.29 CTDIvol (mGy) MEDICAL HISTORY : Deep venous thrombosis. Cardiovascular disease rheumatoid arthritis SURGICAL HISTORY : right ankle surgery ENCOUNTER: Subsequent ACUITY: 2 months PAIN SCALE: 6/10 LOCATION: Right ankle TECHNIQUE: Volumetric scanning of the ankle was performed. Using automated exposure control and adjustment of t he mA and/or kV according to patient size, radiation dose was kept as low as reasonably achievable to obtain optimal diagnostic quality images. DICOM format image data is available electronically for review and comparison. FINDINGS: Views of the right ankle demonstrates external fixation devices traversing the first and fifth metata rsals as well as the calcaneus. There are screws traversing the talus. Several bony fragments are see n adjacent to the talus. Screws are seen traversing the medial malleolus. Plate and screws are seen a long the distal tibia medially. Plate and screws are seen along the fibula as well. Ankle mortise int act. Diffuse soft tissue swelling. No abscess. CONCLUSION: Previous internal fixation with external fixation devices as described above. David Ramires MD on December 07, 2017 at 22:15 Board Certified Radiologist. This report was verified electronically.
[2017-12-07] MEDS ORDERED: BISACODYL 10 MG SUPP RECTAL PRN (22:30)
[2017-12-07] MEDS ORDERED: SENNOSIDES 8.6 MG TAB PO PRN (22:30)
[2017-12-07] MEDS ORDERED: NALOXONE HCL 0.4 MG/ML AMP IV PUSH PRN (22:30)
[2017-12-07] MEDS ORDERED: MAGNESIUM HYDROXIDE SUSP 30 ML CUP PO PRN (22:30)
[2017-12-07] MEDS ORDERED: LACTULOSE SYRUP 20 GM/30 ML CUP PO PRN (22:30)
[2017-12-07] MEDS ORDERED: ONDANSETRON HCL 4 MG/2 ML VIAL IVP PRN (22:30)
[2017-12-07] MEDS ORDERED: SODIUM CHLORIDE 0.9% FLUSH 10 ML FLUSH IV FLUSH PRN (22:30)
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
[2017-12-08 01:09] VITALS: BP 138/84; PULSE 87; RESP 18; TEMP 98; O2SAT 98
[2017-12-08] MEDS: SODIUM CHLOR 0.9% 1000 ML INJ 1,000 ML IV SCH ×3 (01:32→20:00)
[2017-12-08 02:03] LABS: AUTOMATED NEUTROPHIL # 6.1 TH/MM3 (1.8-7.7); BASOPHIL # 0.1 TH/MM3 (0-0.2); EOSINOPHIL % 0.4 % (0.0-4.0); HEMATOCRIT 34.7 % (35.0-46.0); HEMOGLOBIN 11.3 GM/DL (11.6-15.3); LYMPH % 34.3 % (9.0-44.0); LYMPHOCYTE # 3.6 TH/MM3 (1.0-4.8); MEAN CELL VOLUME 71.5 FL (80.0-100.0); MEAN CORPUSCULAR HEMOGLOBIN 23.3 PG (27.0-34.0); MEAN CORPUSCULAR HGB CONC 32.6 % (32.0-36.0); MEAN PLATELET VOLUME 7.9 FL (7.0-11.0); MONO % 5.9 % (0.0-8.0); MONOCYTE # 0.6 TH/MM3 (0-0.9); NEUT % 58.4 % (16.0-70.0); PLATELET COUNT 310 TH/MM3 (150-450); RED BLOOD COUNT 4.85 MIL/MM3 (4.00-5.30); RED CELL DISTRIBUTION WIDTH 16.8 % (11.6-17.2); WHITE BLOOD COUNT 10.4 TH/MM3 (4.0-11.0)
[2017-12-08 02:05] LABS: PROTHROMBIN TIME - PATIENT 10.6 SEC (9.8-11.6)
[2017-12-08 02:24] LABS: ALBUMIN 3.5 GM/DL (3.4-5.0); ALT (GPT) 26 U/L (10-53); AST (GOT) 20 U/L (15-37); BLOOD UREA NITROGEN 7 MG/DL (7-18); CALCIUM 9.1 MG/DL (8.5-10.1); CHLORIDE 103 MEQ/L (98-107); CREATININE 0.79 MG/DL (0.50-1.00); GLOMERULAR FILTRATION RATE 83 ML/MIN (>89); GLUCOSE,RANDOM 86 MG/DL (74-106); SODIUM (NA) 139 MEQ/L (136-145)
[2017-12-08 02:26] LABS: ALKALINE PHOSPHATASE 140 U/L (45-117); TOTAL BILIRUBIN ADULT 0.3 MG/DL (0.2-1.0); TOTAL PROTEIN 7.9 GM/DL (6.4-8.2)
[2017-12-08 04:19] VITALS: BP 140/61; PULSE 97; RESP 18; TEMP 98.7; O2SAT 99
[2017-12-08] MEDS ORDERED: INSULIN HUMAN REGULAR 1,000 UNITS/10 ML VIAL SQ PRN (07:15)
[2017-12-08] MEDS ORDERED: LACTATED RINGER'S 1000 ML IV PRN (07:15)
[2017-12-08] MEDS ORDERED: METOPROLOL TARTRATE 25 MG TAB PO PRN (07:15)
[2017-12-08] MEDS ORDERED: POVIDONE IODINE 5% (ANTISEPSIS KIT) 4 APPLICATIONS EACH NARE PRN (07:15)
[2017-12-08] MEDS ORDERED: SODIUM CHLORID 0.9% 500 ML IV PRN (07:15)
[2017-12-08] MEDS ORDERED: CHLORHEXIDINE GLUCONATE 2 % 1 PACK (2 CLOTHS) TOPICAL PRN (07:15)
[2017-12-08] MEDS: SODIUM CHLORIDE 0.9% FLUSH 10 ML FLUSH IV FLUSH SCH ×2 (09:00→22:50)
[2017-12-08] MEDS: DOCUSATE SODIUM 50 MG/SENNA 8.6 MG TAB PO SCH ×2 (09:00→22:49)
[2017-12-08 09:12] VITALS: BP 117/56; PULSE 108; RESP 12; TEMP 95.7; O2SAT 97
--- NOTE | 2017-12-08 11:11 | HHI.PR ---
Subjective Remarks Follow-up orthopedic injury. Complaining of right lower extremity pain. No numbness. Awaiting surgery. Discussed with and nursing staff. Objective Vitals Vital Signs Date Time Temp Pulse Resp B/P (MAP) Pulse Ox O2 Delivery O2 Flow Rate FiO2 12/08/17 09:12 95.7 108 12 117/56 (76) 97 12/08/17 04:19 98.7 97 18 140/61 (87) 99 12/08/17 01:09 98.0 87 18 138/84 (102) 98 12/07/17 23:20 12/07/17 20:39 98.9 130 20 159/103 (121) 96 Result Diagram: 12/08/17 0142 12/08/17 0142 Imaging Last Impressions Ankle X-Ray 12/07/172101 Signed Impressions: Service Date/Time: Thursday, December 07, 2017 21:27 - CONCLUSION: Previous internal fixation and external fixation devices. David Ramires MD Lower Extremity CT 12/07/17 0000 Signed Impressions: Service Date/Time: Thursday, December 07, 2017 22:02 - CONCLUSION: Previous internal fixation with external fixation devices as described above. David Ramires MD Objective Remarks GENERAL: female well-developed obese in no distress SKIN: No rashes, ecchymoses or lesions. Cool and dry. CARDIOVASCULAR: Regular rate and rhythm without murmurs, gallops, or rubs. RESPIRATORY: Clear to auscultation. Breath sounds equal bilaterally. No wheezes , rales, or rhonchi. GASTROINTESTINAL: Abdomen soft, non-tender, nondistended. No guarding. MUSCULOSKELETAL: Right lower extremity with external fixation hardware in the ankle and lower leg. Neurovascularly intact. Orthopedic shoe left foot NEUROLOGICAL: Awake and alert. Cranial nerves II through XII intact. Motor and sensory grossly within normal limits. Normal speech. A/P Problem List: (1) Ankle fracture ICD Code: S82.899A - Other fracture of unspecified lower leg, initial encounter for closed fracture (2) Fracture of phalanx of left foot, closed ICD Code: S92.912A - Unspecified fracture of left toe(s), initial encounter for closed fracture Assessment and Plan 1. Intractable pain Pain control with Percocet. Add IV morphine for breakthrough pain. Restart gabapentin 2. Status post right ankle fracture Patient with external fixation hardware in place, without signs of infection Dr. Kelley consulted for removal of hardware Nothing by mouth 3. Hypokalemia. Replace with 40 mEq potassium by mouth 1. Repeat BMP and mag in the morning. FEN NPO NS at 100 cc/hr Holding pharmacologic anticoagulation in anticipation operative intervention today Discharge Planning Per podiatry Jaycob Fischer MD Dec 08, 2017 11:11
[2017-12-08] MEDS ORDERED: ONDANSETRON HCL 4 MG/2 ML VIAL IV ONE (12:00)
[2017-12-08] MEDS ORDERED: DEXAMETHASONE SOD PHOS 4 MG/ML VIAL IV ONE (12:00)
[2017-12-08] MEDS ORDERED: LIDOCAINE HCL 1% PF 5 ML SYRINGE OTHER ONE (12:00)
[2017-12-08] MEDS ORDERED: PROPOFOL 200 MG/20 ML AMP IV ONE (12:00)
[2017-12-08] MEDS ORDERED: POTASSIUM CHLORIDE 20 MEQ CONTROLLED RELEASE TAB PO ONE (12:00)
[2017-12-08] MEDS: GABAPENTIN 300 MG CAP PO SCH ×2 (12:02→18:00)
[2017-12-08 12:12] VITALS: BP 131/63; PULSE 90; RESP 18; TEMP 96.1; O2SAT 95
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
[2017-12-08] MEDS ORDERED: GENTAMICIN SULFATE 80 MG/2 ML VIAL ONE (18:10)
[2017-12-08] MEDS ORDERED: ceFAZolin INJ 1,000 MG VIAL ONE (18:18)
[2017-12-08] MEDS ORDERED: DO NOT ADM ANY ANTICOAGULANT DRUGS PRN (18:36)
--- NOTE | 2017-12-08 18:38 | HHI.PR ---
Immediate Post Op Note Procedure Date: Dec 08, 2017 Pre Op Diagnosis: Painful hardware right leg/ankle/foot Post Op Diagnosis: Same Surgeon: Kanika Kelley DPM Air Battle Manager(s): Staff Procedure: Removal of hardware (external fixator) right leg/ankle/foot Findings: Consistent with diagnosis. External fixation device intact with two transtibial pins, one transcalcaneal pin, and one pin each to 1st metatarsal and 5th metatarsal bases, respectively. External fixator and pins removed, followed by curettage of bone and wound, irrigation with normal saline plus gentamicin, followed by revision of pin sites and closure with 2-0 nylon suture to all sites x 6. Healthy bleeding bone and tissue noted prior to closure with no purulence or sign of infection noted. Dressing with xeroform, 4x4, cast padding and short posterior splint applied Right lower extremity. Nonweightbearing Right lower extremity until CT results in Keep bandage clean, dry, intact. Ordered fracture boot to transition into when splint able to be removed. Ok with Discharge home when pain controlled on oral medications. Additional Information: 2g Ancef IV, no tourniquet utilized. Complications: None Specimen(s) removed: none Estimated blood loss: Minimal Anesthesia: General Drains: None IVF Tourniquet time (min at mmHg) n/a Patient to: PACU Patient Condition: Good Date/Time of Procedure: SEE SURGICAL CARE RECORD Kanika Kelley DPM Dec 08, 2017 18:38
[2017-12-08] MEDS ORDERED: MIDAZOLAM HCL 2 MG/2 ML VIAL ONE (18:41)
[2017-12-08] MEDS ORDERED: MORPHINE SULFATE 4 MG/ML INJ ONE (18:41)
[2017-12-08] MEDS ORDERED: *morphine SULFATE 10 MG/ML PERIprocedure ONLY ONE ×3 (19:04→19:26)
--- NOTE | 2017-12-08 19:49 | RADRPT ---
EXAM DATE/TIME: 12/08/2017 18:45 [facility] COMPARISON: No previous studies available for comparison. INDICATIONS : Post ORIF right ankle MEDICAL HISTORY : None. SURGICAL HISTORY : ORIF right ankle ENCOUNTER: Initial ACUITY: 1 day PAIN SCORE: 10/10 LOCATION: Right Tibia FINDINGS: Postoperative fixation lateral and medial malleolus and lag screw fixation of the talus. Patchy osteo penia. Overlying cast. Normal alignment. CONCLUSION: 1. Postoperative change as above. Carlos Enrique Arevalo MD on December 08, 2017 at 19:46 Board Certified Radiologist. This report was verified electronically.
--- NOTE | 2017-12-08 19:51 | RADRPT ---
EXAM DATE/TIME: 12/08/2017 18:49 [facility] COMPARISON: No previous studies available for comparison. INDICATIONS : Post of right ankle surgery. MEDICAL HISTORY : None. SURGICAL HISTORY : ORIF Right ankle ENCOUNTER: Initial ACUITY: 1 day PAIN SCORE: 10/10 LOCATION: Right ankle FINDINGS: Postop fixation medial and lateral malleolus and talus. Patchy osteopenia. Normal alignment. CONCLUSION: 1. Postop changes as above. Carlos Enrique Arevalo MD on December 08, 2017 at 19:47 Board Certified Radiologist. This report was verified electronically.
--- NOTE | 2017-12-08 19:52 | RADRPT ---
EXAM DATE/TIME: 12/08/2017 18:50 [facility] COMPARISON: No previous studies available for comparison. INDICATIONS : Post ORIF right ankle. MEDICAL HISTORY : None. SURGICAL HISTORY : Right ORIF ankle ENCOUNTER: Initial ACUITY: 1 day PAIN SCORE: 10/10 LOCATION: Right foot FINDINGS: Postoperative fixation across a talus fracture. Fixation medial and lateral malleolus. Patchy osteope kim. Overlying cast. CONCLUSION: 1. Postop changes above. Carlos Enrique Arevalo MD on December 08, 2017 at 19:49 Board Certified Radiologist. This report was verified electronically.
[2017-12-08] MEDS: oxyCODONE/ACETAMINOPHEN 5 MG/325 MG TAB PO PRN (20:04)
[2017-12-08 20:50] VITALS: BP 138/84; PULSE 110; RESP 18; TEMP 97.5; O2SAT 96
[2017-12-09] VITALS (7 sets, daily range): BP systolic 115–157; BP diastolic 57–91; PULSE 88–108; RESP 16–18; TEMP 97–98; O2SAT 93–98
[2017-12-09] MEDS: oxyCODONE/ACETAMINOPHEN 5 MG/325 MG TAB PO PRN ×5 (02:59→21:05)
[2017-12-09] MEDS: SODIUM CHLOR 0.9% 1000 ML INJ 1,000 ML IV SCH ×3 (04:22→14:28)
[2017-12-09 07:24] LABS: AUTOMATED NEUTROPHIL # 6.1 TH/MM3 (1.8-7.7); BASOPHIL % 0.3 % (0.0-2.0); HEMATOCRIT 31.9 % (35.0-46.0); HEMOGLOBIN 10.4 GM/DL (11.6-15.3); LYMPH % 15.4 % (9.0-44.0); LYMPHOCYTE # 1.1 TH/MM3 (1.0-4.8); MEAN CELL VOLUME 73.2 FL (80.0-100.0); MEAN CORPUSCULAR HEMOGLOBIN 23.8 PG (27.0-34.0); MEAN CORPUSCULAR HGB CONC 32.5 % (32.0-36.0); MEAN PLATELET VOLUME 8.3 FL (7.0-11.0); MONO % 1.8 % (0.0-8.0); MONOCYTE # 0.1 TH/MM3 (0-0.9); NEUT % 82.5 % (16.0-70.0); PLATELET COUNT 304 TH/MM3 (150-450); RED BLOOD COUNT 4.36 MIL/MM3 (4.00-5.30); RED CELL DISTRIBUTION WIDTH 17.4 % (11.6-17.2); WHITE BLOOD COUNT 7.4 TH/MM3 (4.0-11.0)
[2017-12-09] MEDS: DOCUSATE SODIUM 50 MG/SENNA 8.6 MG TAB PO SCH ×2 (07:33→21:04)
[2017-12-09] MEDS: GABAPENTIN 300 MG CAP PO SCH ×3 (07:33→17:12)
[2017-12-09] MEDS: MORPHINE SULFATE 2 MG/ML INJ IV PUSH PRN ×2 (07:34→12:01)
[2017-12-09 07:38] LABS: BICARBONATE 26.6 MEQ/L (21.0-32.0); CALCIUM 8.5 MG/DL (8.5-10.1); CREATININE 0.66 MG/DL (0.50-1.00); MAGNESIUM 1.9 MG/DL (1.5-2.5)
[2017-12-09] MEDS: SODIUM CHLORIDE 0.9% FLUSH 10 ML FLUSH IV FLUSH SCH ×2 (09:00→21:09)
--- NOTE | 2017-12-09 10:03 | RADRPT ---
EXAM DATE/TIME: 12/09/2017 09:32 [facility] COMPARISON: CT ANKLE RIGHT W/O CONTRAST, December 07, 2017, 22:02. INDICATIONS : Post op external fixator removal to assess with less artifact. RADIATION DOSE: 7.29 CTDIvol (mGy) MEDICAL HISTORY : Deep venous thrombosis. SURGICAL HISTORY : External fixator right ankle. ENCOUNTER: Subsequent ACUITY: 2 days PAIN SCALE: 5/10 LOCATION: Right ankle TECHNIQUE: Volumetric scanning of the ankle was performed. Using automated exposure control and adjustment of t he mA and/or kV according to patient size, radiation dose was kept as low as reasonably achievable to obtain optimal diagnostic quality images. DICOM format image data is available electronically for review and comparison. FINDINGS: There are postoperative changes of plate and screw fixation of the lateral and medial malleolus. 2 la g screws are also seen traversing the talus. Multiple avulsed bone fragments are again noted along th e lower lateral aspect of the talus. There is patchy osteopenia in the bones around the ankle. No dis location or subluxation of the ankle mortise. Previous external fixation has been removed. CONCLUSION: 1. Removal of external fixation. Fixation of the medial and lateral malleolus and talus. Bone fragmen ts adjacent to lateral talus. No change in alignment since December 07. 2. Fairly extensive soft tissue swelling present around the left ankle joint. Carlos Enrique Arevalo MD on December 09, 2017 at 9:55 Board Certified Radiologist. This report was verified electronically.
--- NOTE | 2017-12-09 13:59 | HHI.PR ---
Subjective Remarks some pain post op per patient baseline uses a walker Objective Vitals Vital Signs Date Time Temp Pulse Resp B/P (MAP) Pulse Ox O2 Delivery O2 Flow Rate FiO2 12/09/17 12:50 97 21 12/09/17 11:14 97.7 93 18 115/66 (82) 96 12/09/17 07:26 98.0 88 18 134/75 (94) 97 12/09/17 04:05 97.0 108 18 142/79 (100) 98 12/09/17 00:07 97.4 102 18 121/57 (78) 97 12/08/17 20:50 97.5 110 18 138/84 (102) 96 12/08/17 20:00 97.8 96 16 140/75 (96) 98 Nasal Cannula 2 12/08/17 19:45 92 16 148/77 (100) 96 Nasal Cannula 2 12/08/17 19:31 15 12/08/17 19:31 15 12/08/17 19:30 93 15 146/73 (97) 97 Nasal Cannula 2 12/08/17 19:15 92 15 150/78 (102) 97 Nasal Cannula 2 12/08/17 19:09 15 12/08/17 19:00 93 14 155/79 (104) 98 Nasal Cannula 2 12/08/17 18:45 102 14 153/79 (103) 98 Nasal Cannula 2 12/08/17 18:36 98.2 113 14 156/81 (106) 98 Nasal Cannula 2 12/08/17 17:16 97.5 92 16 145/79 (101) 98 I/O 12/08/17 12/08/17 12/08/17 12/09/17 12/09/17 12/09/17 07:00 15:00 23:00 07:00 15:00 23:00 Intake Total 1000 ml 1000 ml 240 ml Output Total 5 ml 650 ml Balance 1000 ml 995 ml 240 ml -650 ml Intake Oral 600 ml 240 ml IV Total 1000 ml Other 400 ml Output Urine Total 650 ml Estimated Blood Loss 5 ml # Voids 1 2 2 # Bowel Movements 0 0 Result Diagram: 12/09/17 0613 12/09/17 0613 Imaging Last Impressions Tibia/Fibula X-Ray 12/08/17 0000 Signed Impressions: Service Date/Time: Friday, December 08, 2017 18:45 - CONCLUSION: 1. Postoperative change as above. Carlos Enrique Arevalo MD Lower Extremity CT 12/08/17 0000 Signed Impressions: Service Date/Time: Saturday, December 09, 2017 09:32 - CONCLUSION: 1. Removal of external fixation. Fixation of the medial and lateral malleolus and talus. Bone fragments adjacent to lateral talus. No change in alignment since December 07. 2. Fairly extensive soft tissue swelling present around the left ankle joint. Carlos Enrique Arevalo MD Foot X-Ray 12/08/17 0000 Signed Impressions: Service Date/Time: Friday, December 08, 2017 18:50 - CONCLUSION: 1. Postop changes above. Carlos Enrique Arevalo MD Ankle X-Ray 12/08/17 0000 Signed Impressions: Service Date/Time: Friday, December 08, 2017 18:49 - CONCLUSION: 1. Postop changes as above. Carlos Enrique Arevalo MD Objective Remarks awake and alert, no acute distress anicteric lungs- clear regular rhythm abdomen soft, right LE- post op dressing in place Procedures 12/08- Removal of hardware (external fixator) right leg/ankle/foot A/P Problem List: (1) Ankle fracture ICD Code: S82.899A - Other fracture of unspecified lower leg, initial encounter for closed fracture (2) Fracture of phalanx of left foot, closed ICD Code: S92.912A - Unspecified fracture of left toe(s), initial encounter for closed fracture Assessment and Plan 32 years old female Status post right ankle fracture with external fixation hardware in place, without signs of infection S/P removal of painful hardware /external fixator from right ankle from previous fracture 12/08 Pain control with Percocet. Add IV morphine for breakthrough pain. Restart gabapentin Dr. Warren frankel Hypokalemia- replace Lovenox for DVT porphylaxis Discharge Planning Per podiatry Renard Gonzales MD Dec 09, 2017 13:59
[2017-12-09] MEDS ORDERED: ENOXAPARIN SODIUM 30 MG/0.3 ML SYRINGE SQ SCH (18:00)
--- NOTE | 2017-12-09 21:37 | PD.POD ---
Subjective Podiatric Problems s/p removal of external fixator Right foot/ankle 12/08/17 Dr Kelley Past Med/Surg/Social History Social History Smoking Status: Never Smoker Objective Vital Signs Vital Signs Date Time Temp Pulse Resp B/P (MAP) Pulse Ox O2 Delivery O2 Flow Rate FiO2 12/09/17 16:29 97.6 94 18 157/91 (113) 97 12/09/17 12:50 97 21 12/09/17 11:14 97.7 93 18 115/66 (82) 96 12/09/17 07:26 98.0 88 18 134/75 (94) 97 12/09/17 04:05 97.0 108 18 142/79 (100) 98 12/09/17 00:07 97.4 102 18 121/57 (78) 97 Coded Allergies: No Known Allergies (Verified Allergy, Unknown, 12/07/17) Other Results Last 72 hours Impressions Tibia/Fibula X-Ray 12/08/17 0000 Signed Impressions: Service Date/Time: Friday, December 08, 2017 18:45 - CONCLUSION: 1. Postoperative change as above. Carlos Enrique Arevalo MD Lower Extremity CT 12/08/17 0000 Signed Impressions: Service Date/Time: Saturday, December 09, 2017 09:32 - CONCLUSION: 1. Removal of external fixation. Fixation of the medial and lateral malleolus and talus. Bone fragments adjacent to lateral talus. No change in alignment since December 07. 2. Fairly extensive soft tissue swelling present around the left ankle joint. Carlos Enrique Arevalo MD Foot X-Ray 12/08/17 0000 Signed Impressions: Service Date/Time: Friday, December 08, 2017 18:50 - CONCLUSION: 1. Postop changes above. Carlos Enrique Arevalo MD Ankle X-Ray 12/08/17 0000 Signed Impressions: Service Date/Time: Friday, December 08, 2017 18:49 - CONCLUSION: 1. Postop changes as above. Carlos Enrique Arevalo MD Ankle X-Ray 12/07/172101 Signed Impressions: Service Date/Time: Thursday, December 07, 2017 21:27 - CONCLUSION: Previous internal fixation and external fixation devices. David Ramires MD Lower Extremity CT 12/07/17 0000 Signed Impressions: Service Date/Time: Thursday, December 07, 2017 22:02 - CONCLUSION: Previous internal fixation with external fixation devices as described above. David Ramires MD Exam-Podiatry Remarks Neurovascularly intact right lower extremity. Brisk capillary refill. Compartments soft. Bandage/splint intact. Assessment & Plan A/P s/p removal of external fixator Right foot/ankle 12/08/17 Dr Kelley Removed splint and replaced with tall CAM boot Ok to remove boot when at rest. Must wear boot when ambulatory. WBAT RLE in boot with walker or crutches. Ok to d/c home when tolerating PO pain medication and follow up in 1 week for dressing change. Kanika Kelley DPM Dec 09, 2017 21:37
[2017-12-10 00:15] VITALS: BP 135/82; PULSE 89; RESP 16; TEMP 97.8; O2SAT 97
[2017-12-10] MEDS: oxyCODONE/ACETAMINOPHEN 5 MG/325 MG TAB PO PRN ×3 (02:35→13:01)
[2017-12-10 04:15] VITALS: BP 135/84; PULSE 99; RESP 16; TEMP 97.6; O2SAT 95
[2017-12-10 07:53] VITALS: BP 119/66; PULSE 86; RESP 18; TEMP 97.9; O2SAT 98
--- NOTE | 2017-12-10 08:05 | HHI.PR ---
Subjective Remarks minimal pain post op no nausea or vomiting Objective Vitals Vital Signs Date Time Temp Pulse Resp B/P (MAP) Pulse Ox O2 Delivery O2 Flow Rate FiO2 12/10/17 07:53 97.9 86 18 119/66 (83) 98 12/10/17 04:15 97.6 99 16 135/84 (101) 95 12/10/17 00:15 97.8 89 16 135/82 (99) 97 12/09/17 20:15 97.7 105 16 142/65 (90) 93 12/09/17 16:29 97.6 94 18 157/91 (113) 97 12/09/17 12:50 97 21 12/09/17 11:14 97.7 93 18 115/66 (82) 96 I/O 12/09/17 12/09/17 12/09/17 12/10/17 12/10/17 12/10/17 07:00 15:00 23:00 07:00 15:00 23:00 Intake Total 240 ml 600 ml 480 ml 360 ml Output Total 650 ml Balance 240 ml -50 ml 480 ml 360 ml Intake Oral 240 ml 600 ml 480 ml 360 ml Output Urine Total 650 ml # Voids 2 5 1 1 # Bowel Movements 0 0 0 0 Result Diagram: 12/09/17 0613 12/09/17 0613 Imaging Last Impressions Tibia/Fibula X-Ray 12/08/17 0000 Signed Impressions: Service Date/Time: Friday, December 08, 2017 18:45 - CONCLUSION: 1. Postoperative change as above. Carlos Enrique Arevalo MD Lower Extremity CT 12/08/17 0000 Signed Impressions: Service Date/Time: Saturday, December 09, 2017 09:32 - CONCLUSION: 1. Removal of external fixation. Fixation of the medial and lateral malleolus and talus. Bone fragments adjacent to lateral talus. No change in alignment since December 07. 2. Fairly extensive soft tissue swelling present around the left ankle joint. Carlos Enrique Arevalo MD Foot X-Ray 12/08/17 0000 Signed Impressions: Service Date/Time: Friday, December 08, 2017 18:50 - CONCLUSION: 1. Postop changes above. Carlos Enrique Arevalo MD Ankle X-Ray 12/08/17 0000 Signed Impressions: Service Date/Time: Friday, December 08, 2017 18:49 - CONCLUSION: 1. Postop changes as above. Carlos Enrique Arevalo MD Objective Remarks awake and alert, no acute distress anicteric lungs- clear regular rhythm abdomen soft, right LE- post op dressing in place, toes intact sensation, moves toes freely Procedures 12/08- Removal of hardware (external fixator) right leg/ankle/foot A/P Problem List: (1) Ankle fracture ICD Code: S82.899A - Other fracture of unspecified lower leg, initial encounter for closed fracture (2) Fracture of phalanx of left foot, closed ICD Code: S92.912A - Unspecified fracture of left toe(s), initial encounter for closed fracture Assessment and Plan 32 years old female Status post right ankle fracture with external fixation hardware in place, without signs of infection S/P removal of painful hardware /external fixator from right ankle from previous fracture 12/08 Pain control with Percocet. continue gabapentin Dr. Kelley ff-- ok for discharge with OP ff up Ok to remove boot when at rest. Must wear boot when ambulatory. WBAT RLE in boot with walker or crutches. Hypokalemia- replaced Discharge Planning DC home today FF up with Podiatry in 1 week - friday Per patient she has walker at home Renard Gonzales MD Dec 10, 2017 08:04
[2017-12-10] MEDS ORDERED: OXYC1TAB63 PO (08:09)
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
[2017-12-10] MEDS: DOCUSATE SODIUM 50 MG/SENNA 8.6 MG TAB PO SCH (08:57)
[2017-12-10] MEDS: GABAPENTIN 300 MG CAP PO SCH ×2 (08:57→13:01)
[2017-12-10] MEDS: SODIUM CHLORIDE 0.9% FLUSH 10 ML FLUSH IV FLUSH SCH (09:00)
[2017-12-10 12:00] VITALS: BP 157/89; PULSE 93; RESP 18; TEMP 97.3; O2SAT 98
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
== END 2017-12-10 13:43 | disposition home or self-care (01) | DRG 496 ==
LOC: NEPD 20:37 → NEDA 22:36 → NEPFCDU 23:15 → OBSVTOIN 12-08 10:53 → N06B 12-08 17:18
PROVIDERS: ADMIT Internal Medicine; ATTEND Internal Medicine
PROC: 0QPG05Z Removal of External Fixation Device from Right Tibia, Open Approach (ICD-10-PCS; 2017-12-08)
PROC: 0QP Lower Bones, Removal (ICD-10-PCS; 2017-12-08)
PROC: 0QP Lower Bones, Removal (ICD-10-PCS; principal; 2017-12-08 17:48)
DX: T84.84XA Pain due to internal orthopedic prosthetic devices, implants and grafts, initial encounter (principal); Z68.42 Body mass index [BMI] 45.0-49.9, adult; I10 Essential (primary) hypertension; Y83.1 Surgical operation with implant of artificial internal device as the cause of abnormal reaction of the patient, or of later complication, without mention of misadventure at the time of the procedure; F32.9 Major depressive disorder, single episode, unspecified; E66.9 Obesity, unspecified; E87.6 Hypokalemia; V89.2XXD Person injured in unspecified motor-vehicle accident, traffic, subsequent encounter; S92.101D Unspecified fracture of right talus, subsequent encounter for fracture with routine healing; S82.891E Other fracture of right lower leg, subsequent encounter for open fracture type I or II with routine healing
CPT/HCPCS: 73590; 73600; 73610; 73630; 73700; 80048; 80053; 83735; 85025; 85610; 85730; G0378; G8987-GP; G8988-GP; J0690; J1100; J1580; J1650; J2250; J2270; J2405; J3010; J7030; J7120; L2114

== ENCOUNTER 2018-01-05 00:02 | Emergency (ER) | payer MEDICAID ==
[~2018-01-05] VITALS: Ht 162.6 cm; Wt 109.0 kg
[~2018-01-05 00:02] MED LIST changes: -BEDSIDE COMMODE1 MI1; -CYCL10TA PO; +GABA300C5 PO; -LEVA500T33 PO; +OXYC1TAB63 PO
[2018-01-05 00:06] VITALS: BP 201/87; PULSE 95; RESP 18; TEMP 98.8; O2SAT 96
[2018-01-05] MEDS ORDERED: AMOX875T PO (02:01)
--- NOTE | 2018-01-05 02:02 | PD ---
HPI Chief Complaint: Facial Pain or Swelling Time Seen by Provider: 01:56 Travel History International Travel<30 days: No Contact w/Intl Traveler<30days: No Traveled to known affect area: No History of Present Illness HPI The patient is a 32-year-old female that complains of dental pain in tooth #13 which has been broken down. This is been going on for 2 days. The patient went to an urgent care center and was prescribed clindamycin and she took the first tablet tonight at 6:30 PM. She complains of increasing pain and swelling. She does have Percocet at home as well as 800 mg ibuprofen. She says she does not need anything for pain because he already has pain medication. She denies any fever. PFSH Past Medical History Anemia: Yes Arthritis: No Autoimmune Disease: No Anxiety: Yes Depression: Yes Heart Rhythm Problems: No Cancer: No Cardiac Catheterization: No Cardiovascular Problems: Yes High Cholesterol: No Chest Pain: Yes Congestive Heart Failure: No Cerebrovascular Accident: No Diabetes: No Diminished Hearing: No Deep Vein Thrombosis: Yes Endocrine: No Gastrointestinal Disorders: Yes Genetic Disorder: Yes GERD: No Glaucoma: No Genitourinary: No Headaches: No Hiatal Hernia: No Hypertension: No Immune Disorder: No Implanted Vascular Access Dvce: No Musculoskeletal: No Neurologic: No Psychiatric: Yes Respiratory: No Immunizations Current: No Migraines: Yes Seizures: No Thyroid Disease: No Ulcer: No Tetanus Vaccination: < 5 Years Influenza Vaccination: No PNEUMOCCOCAL Vaccine (Year): 2 ?: Not LMP: 2-16-18 : 2 Para: 2 Past Surgical History Abdominal Surgery: No Cardiac Surgery: No Coronary Artery Bypass Graft: No Ear Surgery: No Endocrine Surgery: No Eye Surgery: No Genitourinary Surgery: No Gynecologic Surgery: Yes () Neurologic Surgery: No Oral Surgery: Yes (T&A) Thoracic Surgery: No Other Surgery: Yes (R ANKLE SURGERY/EXT, FIXATOR PLACEMENT) Social History Alcohol Use: Yes ("couple drinks per week") Tobacco Use: No Substance Use: No Allergies-Medications (Allergen,Severity, Reaction): Coded Allergies: No Known Allergies (Verified Allergy, Unknown, 01/05/18) Reported Meds & Prescriptions Reported Meds & Active Scripts Active Oxycodone-Acetaminophen 5-325 (Oxycodone HCl/Acetaminophen) 5 Mg-325 Mg Tablet 1 Tab PO Q4H PRN Percocet (Oxycodone-Acetaminophen) 5-325 mg Tab 1-2 Tab PO Q4H PRN Gnp Senna Plus 8.6-50 mg (Sennosides-Docusate Sodium) 8.6 Mg-50 Mg Tab 2 Tab PO BID Wheelchair Elevated Leg (Device) 1 Mis Mis Ea .ROUTE DIRECTED Walker with Front Wheels (Device) 1 Mis Mis Ea .ROUTE DIRECTED Reported Gabapentin 300 Mg Cap 300 Mg PO TID Review of Systems Except as stated in HPI: all other systems reviewed are Neg Physical Exam Narrative Tooth #13 is broken down but there is no associated drainable abscess. It is exquisitely tender over the tooth. She does have left buccal swelling but no abscess is noted. Data Data Last Documented VS Vital Signs Date Time Temp Pulse Resp B/P (MAP) Pulse Ox O2 Delivery O2 Flow Rate FiO2 01/05/18 00:21 94 18 01/05/18 00:06 98.8 201/87 (125) 96 MDM Medical Decision Making Medical Screen Exam Complete: Yes Emergency Medical Condition: Yes Medical Record Reviewed: Yes Differential Diagnosis Dental infection, drainable abscess, buccal cellulitis, Dane's angina- extremely unlikely Narrative Course Patient has dental infection as well as buccal cellulitis. 2 speed up the antibiotic affect, we will give a shot of Rocephin and put her additionally on amoxicillin. She will need to follow-up with a dentist as soon as possible. Diagnosis Primary Impression: Dental infection Additional Impression: Cellulitis of cheek Additional Instructions: As we discussed, follow-up as soon as possible with a dentist. Med/Other Pt SpecificInfo: Prescription(s) given Scripts Amoxicillin (Amoxicillin) 875 Mg Tab 875 MG PO BID for Infection for 10 Days, #20 TAB 0 Refills Prov: Charlie Sommer MD 01/05/18 Disposition: 01 DISCHARGE HOME Condition: Stable Charlie Sommer MD Jan 05, 2018 02:02
[2018-01-05] MEDS: LIDOCAINE HCL 1% PF 30 ML VIAL ONE ×4 (02:09→02:21)
[2018-01-05] MEDS ORDERED: AMOXICILLIN 875 MG TAB PO ONE (02:15)
[2018-01-05] MEDS ORDERED: LIDOCAINE HCL 1% 50 ML VIAL IM ONE (02:15)
[2018-01-05 02:27] VITALS: BP 178/80; PULSE 88; RESP 18; O2SAT 97
[2018-01-05] MEDS ORDERED: LIDOCAINE HCL 1% 30 ML VIAL IM ONE (02:30)
== END 2018-01-05 02:48 | disposition home or self-care (01) ==
LOC: PHED 00:02
DX: K04.7 Periapical abscess without sinus (principal); L03.211 Cellulitis of face; F41.9 Anxiety disorder, unspecified; F32.9 Major depressive disorder, single episode, unspecified; Z86.718 Personal history of other venous thrombosis and embolism
CPT/HCPCS: 96372; 99283; J0696

== ENCOUNTER → 2018-04-29 | Outpatient (CLI) | payer MEDICAID ==
[~2018-04-29] MED LIST changes: +AMOX875T PO
== END ==
LOC: HPND 09:51
PROVIDERS: ATTEND Obstetrics & Gynecology
DX: O09.522 Supervision of elderly multigravida, second trimester (principal); O35.2XX0 Maternal care for (suspected) hereditary disease in fetus, not applicable or unspecified; O99.212 Obesity complicating pregnancy, second trimester; E66.01 Morbid (severe) obesity due to excess calories; Z68.41 Body mass index [BMI] 40.0-44.9, adult
CPT/HCPCS: 76811